=== PATIENT | male | born 1940 | race Caucasian/White ===

== ENCOUNTER → 2017-07-24 | Outpatient (CLI) | payer MEDICARE, BC ==
[2017-07-24 11:07] LABS: BASOPHILS # (AUTO) 0.03 x10^3/uL (0-0.1); BASOPHILS % (AUTO) 0 % (0-1); EOSINOPHILS # (AUTO) 0.15 x10^3/uL (0-0.4); EOSINOPHILS % (AUTO) 2 % (1-7); LYMPHOCYTES # (AUTO) 2.59 x10^3/uL (1-3.4); LYMPHOCYTES % (AUTO) 41 % (22-44); MD NO; MEAN CORPUSCULAR HEMOGLOBIN 31.5 pg (27.5-34.5); MEAN CORPUSCULAR HGB CONC 33.6 g/dL (33.2-36.2); MEAN CORPUSCULAR VOLUME 93.8 fL (81-97); MEAN PLATELET VOLUME 7.9 fL (7.4-10.4); MONOCYTES # (AUTO) 0.36 x10^3/uL (0.2-0.8); MONOCYTES % (AUTO) 6 % (2-9); NEUTROPHILS # (AUTO) 3.21 x10^3/uL (1.8-6.8); NEUTROPHILS % (AUTO) 51 % (42-75); PLATELET COUNT 212 x10^3/uL (130-400); RED BLOOD COUNT 5.04 x10^6/uL (4.38-5.82); RED CELL DISTRIBUTION WIDTH 14.7 % (9.4-14.8)
[2017-07-24 11:20] LABS: ALBUMIN 4.2 g/dL (3.4-5.0); ANION GAP 7 mmol/L (5-15); CALCIUM 8.8 mg/dL (8.5-10.1); CHLORIDE 107 mmol/L (98-107)
[2017-07-24 11:30] LABS: ALANINE AMINOTRANSFERASE 19 U/L (12-78); ALKALINE PHOSPHATASE 61 U/L (45-117); BILIRUBIN,TOTAL 0.6 mg/dL (0.2-1.0); CHOL/HDL RATIO 2.8; CHOLESTEROL, TOTAL 134 mg/dL (140-239); FREE T4 (FREE THYROXINE) 1.22 ng/dL (0.76-1.46); HDL CHOL % 36 % (26-37); HDL CHOLESTEROL (DIRECT) 48 mg/dL (40-60); LDL CHOLESTEROL,CALCULATED 71 mg/dL (54-169); LDL/HDL RATIO 1.5 (0.5-3.0); TOTAL PROTEIN 8.2 g/dL (6.4-8.2); TRIGLYCERIDES 77 mg/dL (50-200); VLDL CHOLESTEROL 15 mg/dL (0-25)
[2017-07-24 11:36] LABS: MICROSCOPIC AUTO
[2017-07-24 12:24] LABS: HEMOGLOBIN A1C 5.7 % (4.2-6.3)
== END | disposition home or self-care (01) ==
LOC: LAB 10:44
PROVIDERS: ATTEND Internal Medicine
DX: I10 Essential (primary) hypertension (principal); N28.9 Disorder of kidney and ureter, unspecified; E78.5 Hyperlipidemia, unspecified; N40.0 Benign prostatic hyperplasia without lower urinary tract symptoms; R79.89 Other specified abnormal findings of blood chemistry
CPT/HCPCS: 36415; 80053; 80061; 81001; 83036; 84153; 84439; 84443; 85025

== ENCOUNTER → 2019-04-19 | Outpatient (CLI) | payer MEDICARE, BC | END | disposition home or self-care (01) | LOC: CVU 12:01 | PROVIDERS: ATTEND Internal Medicine Cardiovascular Disease | DX: I65.23 Occlusion and stenosis of bilateral carotid arteries (principal); I70.8 Atherosclerosis of other arteries; I10 Essential (primary) hypertension; E78.5 Hyperlipidemia, unspecified; Z87.891 Personal history of nicotine dependence | CPT/HCPCS: 93880 ==

== ENCOUNTER 2019-04-26 14:57 | Emergency (ER) | payer MEDICARE, BC ==
[~2019-04-26] VITALS: Ht 172.7 cm; Wt 65.0 kg
[2019-04-26 15:08] VITALS: BP 136/63
[2019-04-26] MEDS ORDERED: SIMV20TA3 PO (15:22)
[2019-04-26] MEDS ORDERED: FINA5TAB4 PO (15:22)
[2019-04-26] MEDS ORDERED: TERA2CAP3 PO (15:22)
[2019-04-26] MEDS ORDERED: AMLO10TA8 PO (15:23)
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
[2019-04-26] MEDS ORDERED: DIPH,PERTUSS(ACELL),TET VAC/PF 0.5 ML IM-VACC ONE ×2 (15:27→15:30)
[2019-04-26] MEDS ORDERED: LIDOCAINE-MPF 1%, 5ML ONE (15:27)
[2019-04-26] MEDS ORDERED: LIDOCAINE-MPF 1%, 5ML INFIL ONE (15:30)
[2019-04-26] MEDS ORDERED: BUPIVACAINE 0.25% INFIL ONE (15:30)
[2019-04-26] MEDS ORDERED: BUPIVACAINE 0.25% ONE (15:31)
--- NOTE | 2019-04-26 15:43 | NUR ---
PT MEDICATED PER ORDERS.
--- NOTE | 2019-04-26 16:41 | NUR ---
[facility] MD AT BEDSIDE FOR EXAM.
--- NOTE | 2019-04-26 16:46 | NUR ---
TECH AT BEDSIDE FOR RING CUTING.
--- NOTE | 2019-04-26 17:32 | NUR ---
PA AT BEDSIDE FOR WOUND REPAIR.
--- NOTE | 2019-04-26 19:41 | NUR ---
Patient/Caregiver given discharge instructions and they have confirmed that they understand the instructions. Patient ambulatory with steady gait.
== END 2019-04-26 19:53 | disposition home or self-care (01) ==
LOC: ED 19:00
DX: S62.663B Nondisplaced fracture of distal phalanx of left middle finger, initial encounter for open fracture (principal); J44.9 Chronic obstructive pulmonary disease, unspecified; W26.9XXA Contact with unspecified sharp object(s), initial encounter; Y93.89 Activity, other specified; Y92.009 Unspecified place in unspecified non-institutional (private) residence as the place of occurrence of the external cause; Y99.8 Other external cause status
CPT/HCPCS: 12041; 13131; 90471; 90715; 99285

== ENCOUNTER 2019-12-19 13:57 | Emergency (ER) | payer MEDICARE, BC ==
[~2019-12-19] VITALS: Ht 170.2 cm; Wt 63.5 kg
[~2019-12-19 13:57] MED LIST: AMLO10TA8 PO; FINA5TAB4 PO; SIMV20TA19 PO; TERA2CAP3 PO
[2019-12-19 13:58] VITALS: BP 141/72
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
[2019-12-19] MEDS ORDERED: NEOSPORIN OINT. PKT 1 PACKET ONE (15:34)
== END 2019-12-19 15:47 | disposition home or self-care (01) ==
LOC: ED 15:44
DX: S51.031A Puncture wound without foreign body of right elbow, initial encounter (principal); Z87.891 Personal history of nicotine dependence; W22.8XXA Striking against or struck by other objects, initial encounter; Y93.89 Activity, other specified; Y92.009 Unspecified place in unspecified non-institutional (private) residence as the place of occurrence of the external cause; Y99.8 Other external cause status
CPT/HCPCS: 99283

== ENCOUNTER 2020-04-12 11:30 | Outpatient (CLI) | payer MEDICARE, BC ==
[~2020-04-12 11:30] MED LIST changes: +AMLO-211 PO; -AMLO10TA8 PO
[2020-04-12 12:42] LABS: ANION GAP 5 mmol/L (5-15); CHLORIDE 112 mmol/L (98-107)
[2020-04-12 12:43] LABS: ALANINE AMINOTRANSFERASE 17 U/L (12-78); ALBUMIN 4.2 g/dL (3.4-5.0); ALKALINE PHOSPHATASE 60 U/L (45-117); BILIRUBIN,TOTAL 0.5 mg/dL (0.2-1.0); CALCIUM 9.2 mg/dL (8.5-10.1); CHOL/HDL RATIO 2.4; CHOLESTEROL, TOTAL 120 mg/dL (140-239); CREATININE 1.26 mg/dL (0.7-1.3); HDL CHOL % 41 % (26-37); HDL CHOLESTEROL (DIRECT) 49 mg/dL (40-60); LDL CHOLESTEROL,CALCULATED 58 mg/dL (54-169); LDL/HDL RATIO 1.2 (0.5-3.0); TOTAL PROTEIN 7.7 g/dL (6.4-8.2); TRIGLYCERIDES 64 mg/dL (50-200); VLDL CHOLESTEROL 13 mg/dL (0-25)
== END 2020-04-12 23:59 | disposition home or self-care (01) ==
LOC: LAB 11:30
PROVIDERS: ATTEND Internal Medicine Cardiovascular Disease
DX: E78.2 Mixed hyperlipidemia (principal); I10 Essential (primary) hypertension; I25.10 Atherosclerotic heart disease of native coronary artery without angina pectoris; I65.29 Occlusion and stenosis of unspecified carotid artery
CPT/HCPCS: 36415; 80053; 80061

== ENCOUNTER 2020-09-28 16:33 | Inpatient (IN) | payer MEDICARE, BC ==
[~2020-09-28] VITALS: Ht 170.2 cm; Wt 59.3 kg
--- NOTE | 2020-09-28 16:48 | NUR ---
[employer] FOREMAN: PT PLACED ON 2L OXYGEN VIA NC. OXYGEN LEVEL 97%
[2020-09-28] MEDS ORDERED: DOXYCYCLINE 100 MG in DEXTROSE 5% 250 ML IV ONE (17:00)
--- NOTE | 2020-09-28 17:06 | NUR ---
PT WC'D TO ROOM W/ C/O SOB, COUGH, FATIGUE, HIGH 80'S RA PLACED ON 2L NC. PT STATES SX STARTED2 WEEKS AGO. PT STATES HE WAS EXPOSED TO COVID-19 THROUGH FAMILY. PT STATES HE HAS NOT BEEN TESTED FOR COVID AND HE HAS NOT RECEIVED THE COVID VACCINE. PT RESTING ON GURNEY. NADN. MONITORS APPLIED. VSS ON 2L NC. PT DENIES USE OF HOME O2. SPEAKING IN FULL SENTENCES.
[2020-09-28] MEDS ORDERED: DEXAMETHASONE 4 MG/ML, 1ML ONE ×2 (17:29→18:57)
[2020-09-28] MEDS ORDERED: DEXAMETHASONE 4 MG/ML, 1ML IV ONE (17:30)
[2020-09-28 17:39] LABS: BASOPHILS % (AUTO) 0 % (0-1); EOSINOPHILS % (AUTO) 0 % (1-7); LYMPHOCYTES % (AUTO) 6 % (22-44); MD NO; MEAN CORPUSCULAR HEMOGLOBIN 31.9 pg (27.5-34.5); MEAN CORPUSCULAR HGB CONC 34.2 g/dL (33.2-36.2); MEAN PLATELET VOLUME 7.8 fL (7.4-10.4); MONOCYTES % (AUTO) 5 % (2-9); NEUTROPHILS % (AUTO) 89 % (42-75); PLATELET COUNT 230 x10^3/uL (130-400); RED BLOOD COUNT 4.67 x10^6/uL (4.38-5.82); RED CELL DISTRIBUTION WIDTH 13.5 % (9.4-14.8)
--- NOTE | 2020-09-28 17:39 | NUR ---
PT RESTING ON GURNEY. NADN. KERR.
[2020-09-28 17:43] LABS: PLATELET (DIC) 208 x10^3/uL (130-400)
[2020-09-28 17:50] LABS: CHLORIDE 104 mmol/L (98-107)
[2020-09-28 17:57] LABS: D-DIMER (DIC) 1.21 ug/mlFEU (0.00-0.52); PROTIME 10.7 Seconds (9.6-11.5); PTT 34 Seconds (25-31)
[2020-09-28 18:12] LABS: ALANINE AMINOTRANSFERASE 37 U/L (12-78); ALBUMIN 2.8 g/dL (3.4-5.0); ALKALINE PHOSPHATASE 66 U/L (45-117); ANION GAP 9 mmol/L (5-15); BILIRUBIN,TOTAL 0.7 mg/dL (0.2-1.0); CALCIUM 8.5 mg/dL (8.5-10.1); CREATININE 1.33 mg/dL (0.7-1.3); TOTAL PROTEIN 7.6 g/dL (6.4-8.2)
[2020-09-28 18:14] LABS: FIBRINOGEN > 713 mg/dL (200-340)
--- NOTE | 2020-09-28 18:23 | NUR ---
PT RESTING ON GURNEY. NADN. KERR.
--- NOTE | 2020-09-28 18:28 | NUR ---
PT CHART REVIEWED AND PLACED FOR RECHEC.
[2020-09-28] MEDS ORDERED: CEFTRIAXONE 1,000 MG in DEXTROSE 5% 50 ML IVPB ONE (18:30)
--- NOTE | 2020-09-28 19:19 | NUR ---
PT RESTING ON GURNEY. NADN. KERR.
--- NOTE | 2020-09-28 19:55 | NUR ---
REPORT GIVEN TO LUANN BENSON RN. ALL QUESTIONS ANSWERED. AWAITING PT TRANSPORT.
[2020-09-28 21:42] VITALS: BP 104/56
[2020-09-28] MEDS ORDERED: PHARMACY MAY ADJ FOR RENAL FX MC PRN (23:00)
[2020-09-28] MEDS ORDERED: MELATONIN 5 MG TABLET PO PRN (23:00)
[2020-09-28] MEDS ORDERED: ACETAMINOPHEN 325 MG TABLET PO PRN (23:00)
[2020-09-28] MEDS ORDERED: ONDANSETRON 2MG/ML, 2ML IVPush PRN (23:00)
[2020-09-28] MEDS ORDERED: hydrALAzine 20 MG/ML, 1ML IVPush PRN (23:00)
[2020-09-28] MEDS ORDERED: POTASSIUM CHLORIDE 20 MEQ TAB.ER.PRT PO ONE (23:30)
[2020-09-29] MEDS: CEFTRIAXONE 1,000 MG in DEXTROSE 5% 50 ML IVPB SCH (01:05)
[2020-09-29] MEDS: HEPARIN 5,000 UNITS/ML, 1ML SQ SCH ×3 (01:05→18:13)
[2020-09-29 01:16] VITALS: BP 106/58
[2020-09-29 06:21] LABS: ANION GAP 7 mmol/L (5-15); CHLORIDE 110 mmol/L (98-107); CREATININE 0.83 mg/dL (0.7-1.3)
[2020-09-29 07:19] VITALS: BP 99/62
[2020-09-29] MEDS ORDERED: AMLODIPINE 10 MG TAB PO SCH (09:00)
[2020-09-29] MEDS: DOXYCYCLINE 100MG TABLET PO SCH ×2 (10:11→21:36)
[2020-09-29] MEDS: DEXAMETHASONE 4 MG/ML, 1ML IVPush SCH (10:11)
[2020-09-29] MEDS: TERAZOSIN 2MG CAPSULE PO SCH (10:12)
[2020-09-29] MEDS: AMLODIPINE 10 MG TAB PO SCH (10:12)
[2020-09-29] MEDS: FINASTERIDE 5 MG TABLET PO SCH (11:08)
[2020-09-29 13:52] VITALS: BP 103/59
[2020-09-29] MEDS ORDERED: SIMVASTATIN 20 MG TABLET PO SCH (21:00)
[2020-09-29] MEDS ORDERED: OMNIPAQUE 350 MG/ML, 100ML BOTTLE ONE (21:00)
[2020-09-29] MEDS ORDERED: REMDESIVIR 200 MG in SODIUM CHLORIDE 0.9% 250 ML IVPB ONE (21:00)
[2020-09-29 21:34] VITALS: BP 108/66
[2020-09-29] MEDS ORDERED: ATOR40TA78 PO (22:52)
[2020-09-29] MEDS: MELATONIN 5 MG TABLET PO SCH (23:30)
[2020-09-30] MEDS: CEFTRIAXONE 1,000 MG in DEXTROSE 5% 50 ML IVPB SCH (01:24)
[2020-09-30] MEDS: HEPARIN 5,000 UNITS/ML, 1ML SQ SCH ×2 (01:25→07:50)
[2020-09-30 01:27] VITALS: BP 103/59
[2020-09-30 06:01] LABS: BASOPHILS % (AUTO) 0 % (0-1); EOSINOPHILS % (AUTO) 0 % (1-7); LYMPHOCYTES % (AUTO) 4 % (22-44); MEAN CORPUSCULAR HEMOGLOBIN 31.9 pg (27.5-34.5); MEAN CORPUSCULAR HGB CONC 34.5 g/dL (33.2-36.2); MEAN PLATELET VOLUME 7.8 fL (7.4-10.4); MONOCYTES % (AUTO) 5 % (2-9); NEUTROPHILS % (AUTO) 90 % (42-75); PLATELET COUNT 241 x10^3/uL (130-400); RED BLOOD COUNT 4.12 x10^6/uL (4.38-5.82); RED CELL DISTRIBUTION WIDTH 13.5 % (9.4-14.8)
[2020-09-30 06:02] LABS: MD NO
[2020-09-30 06:13] LABS: ALANINE AMINOTRANSFERASE 44 U/L (12-78); ALBUMIN 2.2 g/dL (3.4-5.0); ANION GAP 7 mmol/L (5-15); CHLORIDE 110 mmol/L (98-107)
[2020-09-30 06:16] LABS: ALKALINE PHOSPHATASE 59 U/L (45-117); BILIRUBIN,TOTAL 0.3 mg/dL (0.2-1.0); CREATININE 0.77 mg/dL (0.7-1.3); TOTAL PROTEIN 6.2 g/dL (6.4-8.2)
[2020-09-30 07:46] VITALS: BP 109/64
[2020-09-30] MEDS: AMLODIPINE 10 MG TAB PO SCH (07:48)
[2020-09-30] MEDS: TERAZOSIN 2MG CAPSULE PO SCH (07:49)
[2020-09-30] MEDS: DEXAMETHASONE 4 MG/ML, 1ML IVPush SCH (07:49)
[2020-09-30] MEDS: CHOLECALCIFEROL 5,000u TAB PO SCH (07:50)
[2020-09-30] MEDS: THIAMINE 100MG TABLET PO SCH ×2 (07:50→21:56)
[2020-09-30] MEDS: FINASTERIDE 5 MG TABLET PO SCH (07:50)
[2020-09-30] MEDS: DOXYCYCLINE 100MG TABLET PO SCH ×2 (07:50→21:56)
[2020-09-30] MEDS: ASCORBIC ACID 500 MG TABLET PO SCH ×2 (08:10→16:42)
[2020-09-30] MEDS ORDERED: SODIUM CHLORIDE 0.9%, 500ML IVBOLUS ONE (11:30)
[2020-09-30] MEDS: ENOXAPARIN 40 MG/0.4 ML SQ SCH (12:01)
[2020-09-30] MEDS: ZINC SULFATE 220 MG CAPSULE PO SCH (12:01)
[2020-09-30 12:08] VITALS: BP 106/62
[2020-09-30 12:57] VITALS: BP 117/62
[2020-09-30] MEDS: POTASSIUM CHLORIDE 20 MEQ TAB.ER.PRT PO SCH (16:42)
[2020-09-30 20:00] VITALS: BP 107/65
[2020-09-30] MEDS: MELATONIN 5 MG TABLET PO SCH (21:00)
[2020-09-30] MEDS: ATORVASTATIN 40 MG TABLET PO SCH (21:56)
[2020-09-30] MEDS: REMDESIVIR 100 MG in SODIUM CHLORIDE 0.9% 250 ML IVPB SCH (22:55)
[2020-10-01 00:56] VITALS: BP 112/61
[2020-10-01] MEDS: CEFTRIAXONE 1,000 MG in DEXTROSE 5% 50 ML IVPB SCH (00:56)
[2020-10-01 05:35] LABS: CALCIUM 8.2 mg/dL (8.5-10.1); CHLORIDE 112 mmol/L (98-107)
[2020-10-01 05:40] LABS: ALANINE AMINOTRANSFERASE 54 U/L (12-78); ALBUMIN 2.3 g/dL (3.4-5.0); ALKALINE PHOSPHATASE 57 U/L (45-117); ANION GAP 4 mmol/L (5-15); BILIRUBIN,TOTAL 0.2 mg/dL (0.2-1.0); CREATININE 0.84 mg/dL (0.7-1.3); TOTAL PROTEIN 6.2 g/dL (6.4-8.2)
[2020-10-01 08:14] VITALS: BP 102/51
[2020-10-01] MEDS: TERAZOSIN 2MG CAPSULE PO SCH (08:16)
[2020-10-01] MEDS: POTASSIUM CHLORIDE 20 MEQ TAB.ER.PRT PO SCH ×2 (08:16→16:47)
[2020-10-01] MEDS: DEXAMETHASONE 4 MG/ML, 1ML IVPush SCH (08:17)
[2020-10-01] MEDS: ASCORBIC ACID 500 MG TABLET PO SCH ×2 (08:17→16:47)
[2020-10-01] MEDS: DOXYCYCLINE 100MG TABLET PO SCH ×2 (08:17→21:09)
[2020-10-01] MEDS: FINASTERIDE 5 MG TABLET PO SCH (08:17)
[2020-10-01] MEDS: THIAMINE 100MG TABLET PO SCH ×2 (08:17→21:09)
[2020-10-01] MEDS: CHOLECALCIFEROL 5,000u TAB PO SCH (08:17)
[2020-10-01] MEDS: AMLODIPINE 10 MG TAB PO SCH (08:23)
[2020-10-01] MEDS: ZINC SULFATE 220 MG CAPSULE PO SCH (11:37)
[2020-10-01] MEDS: ENOXAPARIN 40 MG/0.4 ML SQ SCH (11:38)
[2020-10-01 12:54] VITALS: BP 102/61
[2020-10-01] MEDS: MELATONIN 5 MG TABLET PO SCH (21:00)
[2020-10-01] MEDS: ATORVASTATIN 40 MG TABLET PO SCH (21:08)
[2020-10-01 21:10] VITALS: BP 107/62
[2020-10-01] MEDS: REMDESIVIR 100 MG in SODIUM CHLORIDE 0.9% 250 ML IVPB SCH (23:15)
[2020-10-02] MEDS: CEFTRIAXONE 1,000 MG in DEXTROSE 5% 50 ML IVPB SCH (01:25)
[2020-10-02 05:26] VITALS: BP 112/66
[2020-10-02 05:49] LABS: BASOPHILS % (AUTO) 0 % (0-1); EOSINOPHILS % (AUTO) 0 % (1-7); LYMPHOCYTES % (AUTO) 9 % (22-44); MEAN CORPUSCULAR HEMOGLOBIN 31.9 pg (27.5-34.5); MEAN CORPUSCULAR HGB CONC 33.9 g/dL (33.2-36.2); MEAN PLATELET VOLUME 7.9 fL (7.4-10.4); MONOCYTES % (AUTO) 7 % (2-9); NEUTROPHILS % (AUTO) 84 % (42-75); PLATELET COUNT 270 x10^3/uL (130-400); RED BLOOD COUNT 4.14 x10^6/uL (4.38-5.82); RED CELL DISTRIBUTION WIDTH 13.5 % (9.4-14.8)
[2020-10-02 05:59] LABS: ALBUMIN 2.3 g/dL (3.4-5.0); ANION GAP 5 mmol/L (5-15); CALCIUM 8.4 mg/dL (8.5-10.1); CHLORIDE 112 mmol/L (98-107)
[2020-10-02 06:09] LABS: ALANINE AMINOTRANSFERASE 51 U/L (12-78); ALKALINE PHOSPHATASE 57 U/L (45-117); BILIRUBIN,TOTAL 0.2 mg/dL (0.2-1.0); CREATININE 0.81 mg/dL (0.7-1.3)
[2020-10-02 06:19] LABS: MD SCAN
[2020-10-02] MEDS: ASCORBIC ACID 500 MG TABLET PO SCH ×2 (07:51→17:12)
[2020-10-02] MEDS: FINASTERIDE 5 MG TABLET PO SCH (07:51)
[2020-10-02] MEDS: POTASSIUM CHLORIDE 20 MEQ TAB.ER.PRT PO SCH ×2 (07:51→17:12)
[2020-10-02] MEDS: DEXAMETHASONE 4 MG/ML, 1ML IVPush SCH (07:52)
[2020-10-02] MEDS: DOXYCYCLINE 100MG TABLET PO SCH ×2 (07:52→20:42)
[2020-10-02] MEDS: AMLODIPINE 10 MG TAB PO SCH (07:52)
[2020-10-02] MEDS: CHOLECALCIFEROL 5,000u TAB PO SCH (07:52)
[2020-10-02] MEDS: THIAMINE 100MG TABLET PO SCH ×2 (07:52→20:42)
[2020-10-02] MEDS: TERAZOSIN 2MG CAPSULE PO SCH (07:52)
[2020-10-02 09:30] VITALS: BP 96/52
[2020-10-02] MEDS: ZINC SULFATE 220 MG CAPSULE PO SCH (11:53)
[2020-10-02] MEDS: ENOXAPARIN 40 MG/0.4 ML SQ SCH (11:54)
[2020-10-02 12:11] VITALS: BP 112/58
[2020-10-02 19:47] VITALS: BP 116/66
[2020-10-02] MEDS: ATORVASTATIN 40 MG TABLET PO SCH (20:42)
[2020-10-02] MEDS: MELATONIN 5 MG TABLET PO SCH (20:43)
[2020-10-02] MEDS ORDERED: CHOL500045 PO (22:37)
[2020-10-02] MEDS ORDERED: ASCO500T9 PO (22:37)
[2020-10-02] MEDS ORDERED: DEXA6TAB6 PO (22:37)
[2020-10-02] MEDS ORDERED: AMLO-211 PO (22:37)
[2020-10-02] MEDS ORDERED: THIA100T67 PO (22:37)
[2020-10-02] MEDS ORDERED: DOXY100T PO (22:37)
[2020-10-02] MEDS ORDERED: ZINC220C8 PO (22:37)
[2020-10-02] MEDS ORDERED: MELA5TAB14 PO (22:37)
[2020-10-02] MEDS: REMDESIVIR 100 MG in SODIUM CHLORIDE 0.9% 250 ML IVPB SCH (23:02)
[2020-10-03 01:00] VITALS: BP 117/66
[2020-10-03] MEDS: CEFTRIAXONE 1,000 MG in DEXTROSE 5% 50 ML IVPB SCH (01:10)
[2020-10-03 05:28] LABS: CHLORIDE 109 mmol/L (98-107)
[2020-10-03 05:33] LABS: ALANINE AMINOTRANSFERASE 64 U/L (12-78); ALBUMIN 2.4 g/dL (3.4-5.0); ALKALINE PHOSPHATASE 55 U/L (45-117); ANION GAP 3 mmol/L (5-15); BILIRUBIN,TOTAL 0.3 mg/dL (0.2-1.0); CALCIUM 8.3 mg/dL (8.5-10.1); CREATININE 0.86 mg/dL (0.7-1.3); TOTAL PROTEIN 6.2 g/dL (6.4-8.2)
[2020-10-03] MEDS ORDERED: SODIUM CHLORIDE 0.9%, 250ML IVBOLUS ONE (07:30)
[2020-10-03 08:38] VITALS: BP 122/67
[2020-10-03] MEDS: ASCORBIC ACID 500 MG TABLET PO SCH ×2 (08:58→18:00)
[2020-10-03] MEDS: TERAZOSIN 2MG CAPSULE PO SCH (08:58)
[2020-10-03] MEDS: THIAMINE 100MG TABLET PO SCH ×2 (08:58→20:44)
[2020-10-03] MEDS: AMLODIPINE 10 MG TAB PO SCH (08:59)
[2020-10-03] MEDS: DOXYCYCLINE 100MG TABLET PO SCH ×2 (08:59→20:44)
[2020-10-03] MEDS: CHOLECALCIFEROL 5,000u TAB PO SCH (08:59)
[2020-10-03] MEDS: DEXAMETHASONE 4 MG/ML, 1ML IVPush SCH (09:00)
[2020-10-03] MEDS: ZINC SULFATE 220 MG CAPSULE PO SCH (12:25)
[2020-10-03] MEDS: FINASTERIDE 5 MG TABLET PO SCH (12:26)
[2020-10-03] MEDS: ENOXAPARIN 40 MG/0.4 ML SQ SCH (12:26)
[2020-10-03 13:09] VITALS: BP 109/67
[2020-10-03 19:49] VITALS: BP 110/62
[2020-10-03] MEDS: MELATONIN 5 MG TABLET PO SCH (20:40)
[2020-10-03] MEDS: ATORVASTATIN 40 MG TABLET PO SCH (20:44)
[2020-10-03] MEDS: REMDESIVIR 100 MG in SODIUM CHLORIDE 0.9% 250 ML IVPB SCH (23:08)
[2020-10-04 00:36] VITALS: BP_SYST 126; BP_SYST 76; BP_DIAS 62
[2020-10-04] MEDS: CEFTRIAXONE 1,000 MG in DEXTROSE 5% 50 ML IVPB SCH (01:11)
[2020-10-04 07:26] VITALS: BP 115/70
[2020-10-04 08:10] LABS: ANION GAP 3 mmol/L (5-15); CALCIUM 8.9 mg/dL (8.5-10.1); CHLORIDE 105 mmol/L (98-107); CREATININE 0.91 mg/dL (0.7-1.3)
[2020-10-04] MEDS: TERAZOSIN 2MG CAPSULE PO SCH (08:43)
[2020-10-04] MEDS: ASCORBIC ACID 500 MG TABLET PO SCH (08:43)
[2020-10-04] MEDS: AMLODIPINE 10 MG TAB PO SCH (08:43)
[2020-10-04] MEDS: THIAMINE 100MG TABLET PO SCH (08:43)
[2020-10-04] MEDS: DOXYCYCLINE 100MG TABLET PO SCH (08:43)
[2020-10-04] MEDS: CHOLECALCIFEROL 5,000u TAB PO SCH (08:44)
[2020-10-04] MEDS: DEXAMETHASONE 4 MG/ML, 1ML IVPush SCH (09:49)
[2020-10-04] MEDS: FINASTERIDE 5 MG TABLET PO SCH (09:50)
[2020-10-04] MEDS: ZINC SULFATE 220 MG CAPSULE PO SCH (11:26)
[2020-10-04] MEDS: ENOXAPARIN 40 MG/0.4 ML SQ SCH (11:26)
== END 2020-10-04 17:02 | disposition home or self-care (01) | DRG 177 ==
LOC: ED 18:25 → EDIP 18:36 → ED 18:40 → 3N 20:11
PROVIDERS: ADMIT Emergency Medicine; ATTEND Internal Medicine
PROC: XW033E5 Introduction of Remdesivir Anti-infective into Peripheral Vein, Percutaneous Approach, New Technology Group 5 (ICD-10-PCS; principal; 2020-09-29)
DX: U07.1 COVID-19 (principal); J96.01 Acute respiratory failure with hypoxia; J12.82 Pneumonia due to coronavirus disease 2019; N17.0 Acute kidney failure with tubular necrosis; E78.5 Hyperlipidemia, unspecified; E87.5 Hyperkalemia; E87.6 Hypokalemia; I10 Essential (primary) hypertension; J43.9 Emphysema, unspecified; N40.0 Benign prostatic hyperplasia without lower urinary tract symptoms; Z87.891 Personal history of nicotine dependence; Z90.79 Acquired absence of other genital organ(s); I95.9 Hypotension, unspecified
CPT/HCPCS: 36415; 71045; 71275; 80048; 80053; 82728; 83605; 83615; 83735; 84145; 85025; 85049; 85379; 85384; 85610; 85730; 86140; 87040; 93005; 96365; 96375; 99285; G0378; J0696; J1100; J1644; J1650; J7060; Q9967; U0005; J7040; J7050; U0003